=== PATIENT | female | born 1995 | race Caucasian/White ===

== ENCOUNTER 2018-04-18 19:46 | Emergency (ER) | payer BC ==
[2018-04-18] MEDS ORDERED: RINGERS SOLUTION,LACTATED 1,000 ML IV ONE (20:56)
[2018-04-18] MEDS ORDERED: TETRACAINE HCL 0.5% OPH SOLN 4 ML OD ONE (20:57)
--- NOTE | 2018-04-18 20:58 | ER Document Report ---
ED Medical Screen (RME) - General Chief Complaint: Eye Problem Stated Complaint: EYE INJURY Mode of Arrival: Ambulatory Information source: Patient Notes: Patient reports accidentally using nail belarusian remover to remove eye makeup. Patient complains of burning and irritation to right eye. Patient states that poison control advised to come here for further evaluation. Patient denies any use of contact lenses or glasses. I have greeted and performed a rapid initial assessment of this patient. A comprehensive ED assessment and evaluation of the patient, analysis of test results and completion of the medical decision making process will be conducted by additional ED providers. TRAVEL OUTSIDE OF THE [place] IN LAST 30 DAYS: No Physical Exam - Vital signs Vitals: Temp Pulse Resp BP Pulse Ox 98.6 F 94 18 119/82 98 04/18/18 19:52 04/18/18 19:52 04/18/18 19:52 04/18/18 19:52 04/18/18 19:52 - HEENT Eyes: Other - Sclera of right eye injected Visual acuity- Right eye: 20/15 Visual acuity- Left eye: 20/15 Visual acuity- Both eyes: 20/15 Corrective lenses worn: No Course - Vital Signs Vital signs: Temp Pulse Resp BP Pulse Ox 98.6 F 94 18 119/82 98 04/18/18 19:52 04/18/18 19:52 04/18/18 19:52 04/18/18 19:52 04/18/18 19:52 Doctor's Discharge - Discharge Referrals: KARLEE BUSTAMANTE MD [Primary Care Provider] - Follow up as needed
--- NOTE | 2018-04-18 22:59 | ER Document Report ---
ED Eye Complaint - General Chief Complaint: Eye Problem Stated Complaint: EYE INJURY Time Seen by Provider: 04/18/18 21:05 Mode of Arrival: Ambulatory Information source: Patient TRAVEL OUTSIDE OF THE [place] IN LAST 30 DAYS: No - HPI Notes: Patient is a otherwise healthy 23-year-old female states that she accidentally was using acetone to remove her eye makeup and may have gotten a small amount of acetone in her right eye. The patient reports no fever or chills but reports mild photophobia and eye pain. No difficulty breathing or oropharyngeal swelling. No nausea or vomiting. Last tetanus 2 years ago. Injury occurred at 1830 and she flushed her eye out immediately following and then flushed it second time prior to arrival. - Related Data Allergies/Adverse Reactions: No Known Allergies Allergy (Unverified 04/18/18 22:08) Past Medical History - General Information source: Patient - Social History Smoking Status: Unknown if Ever Smoked Frequency of alcohol use: None Drug Abuse: None Lives with: Alone Family History: Reviewed & Not Pertinent Patient has suicidal ideation: No Patient has homicidal ideation: No Renal/ Medical History: Denies: Hx Peritoneal Dialysis Review of Systems - Review of Systems -: Yes All other systems reviewed and negative Physical Exam - Vital signs Vitals: Temp Pulse Resp BP Pulse Ox 98.6 F 94 18 119/82 98 04/18/18 19:52 04/18/18 19:52 04/18/18 19:52 04/18/18 19:52 04/18/18 19:52 - HEENT Head: Normocephalic Eyes: Tears Conjunctiva: Injected Cornea: Flourescein stain uptake Extraocular movements intact: Yes Eyelashes: Normal Pupils: PERRL - New and then Visual acuity- Right eye: 20/15 Visual acuity- Left eye: 20/15 Visual acuity- Both eyes: 20/15 Corrective lenses worn: No Lids everted for exam: right: Normal - Mild cobblestoning and slight inflammation., Chalazion - None, Foreign body, Stye - None Anterior chamber: Normal Nerve palsy: No Visual plummer normal: Yes Notes: Minimal fluoroscein uptake R cornea stippling. Mild conj injection. Course - Re-evaluation Re-evalutation: 04/18/18 22:59 Patient had tetracaine eyedrops then 1 L of fluids was used to irrigate the eye with a Pepito lens. Exam was performed afterwards and patient had significant relief after the irrigation. There is no evidence for systemic allergic response or toxicity or respiratory toxicity. - Vital Signs Vital signs: Temp Pulse Resp BP Pulse Ox 98.6 F 94 18 119/82 98 04/18/18 19:52 04/18/18 19:52 04/18/18 19:52 04/18/18 19:52 04/18/18 19:52 Discharge - Discharge Clinical Impression: Burn of cornea and conjunctival sac, right eye, initial encounter Condition: Stable Disposition: HOME, SELF-CARE Instructions: Eyedrop Use ([facility]), Corneal Abrasion ([facility]) Additional Instructions: Avoid bright lights and sunlight if it causes you pain. Wear sunglasses and hat. Follow-up with local assistant elementary teacher or regional sales executive in case of any pain or irritation that persists longer than 48 hours. Use gentamicin ophthalmic drops 1 drop 4 times a day until pain is resolved +2 days. Take ibuprofen as needed for pain. Add in [place] for continued pain. Prescriptions: Hydrocodone/Acetaminophen [[place] 5-325 Tablet] 1 each PO Q4HP PRN #15 tablet PRN Reason: Referrals: KARLEE BUSTAMANTE MD [Primary Care Provider] - Follow up as needed
[2018-04-18 23:28] VITALS: BP 121/71
[2018-04-19] MEDS ORDERED: GENTAMICIN SULFATE 0.3% OPH SOLN (5 ML/ER DISP) OD SCH
== END 2018-04-18 23:29 | disposition home or self-care (01) ==
LOC: ER 19:46
DX: T26.11XA Burn of cornea and conjunctival sac, right eye, initial encounter (principal); X08.8XXA Exposure to other specified smoke, fire and flames, initial encounter
CPT/HCPCS: 99283; 96360; J3490 ×2; J7120

== ENCOUNTER → 2018-06-21 | Outpatient (CLI) | payer BC ==
[2018-06-21 09:29] LABS: ABSOLUTE LYMPHOCYTES (AUTO) 1.5 10^3/uL (0.5-4.7); ABSOLUTE MONOCYTES (AUTO) 0.3 10^3/uL (0.1-1.4); ABSOLUTE NEUT (AUTO) 5.5 10^3/uL (1.7-8.2); BASOPHILS % (AUTO) 0.3 % (0-2); EOSINOPHILS % (AUTO) 0.6 % (0-6); HEMATOCRIT 41.4 % (36.0-47.0); HEMOGLOBIN 14.7 g/dL (12.0-15.5); LYMPHOCYTES % (AUTO) 20.1 % (13-45); MEAN CORPUSCULAR HEMOGLOBIN 32.2 pg (27.0-33.4); MEAN CORPUSCULAR HGB CONC 35.4 g/dL (32.0-36.0); MEAN CORPUSCULAR VOLUME 91 fl (80-97); MONOCYTES % (AUTO) 4.8 % (3-13); PLATELET COUNT 294 10^3/uL (150-450); RED BLOOD COUNT 4.55 10^6/uL (3.72-5.28); RED CELL DISTRIBUTION WIDTH 11.5 % (11.5-14.0); SEGMENTED NEUTROPHILS % (AUTO) 74.2 % (42-78); TOTAL CELLS COUNTED % (AUTO) 100 %; WHITE BLOOD COUNT 7.3 10^3/uL (4.0-10.5)
[2018-06-21 09:42] LABS: ALANINE AMINOTRANSFERASE 18 U/L (9-52); ALBUMIN 4.4 g/dL (3.5-5.0); ALKALINE PHOSPHATASE 62 U/L (38-126); ANION GAP 6 (5-19); ASPARTATE AMINO TRANSFERASE 25 U/L (14-36); BILIRUBIN,DIRECT 0.2 mg/dL (0.0-0.4); BILIRUBIN,TOTAL 0.6 mg/dL (0.2-1.3); BLOOD UREA NITROGEN 13 mg/dL (7-20); CALCIUM 9.5 mg/dL (8.4-10.2); CARBON DIOXIDE 31 mmol/L (22-30); CHLORIDE 103 mmol/L (98-107); CHOLESTEROL 168.44 mg/dL (0-200); GLUCOSE 89 mg/dL (75-110); POTASSIUM 4.3 mmol/L (3.6-5.0); SODIUM 140.1 mmol/L (137-145); TRIGLYCERIDES 52 mg/dL (<150)
[2018-06-21 09:53] LABS: DIRECT LDL 92 mg/dL (<100)
== END ==
LOC: OD 07:06
PROVIDERS: ATTEND Family Medicine Geriatric Medicine
DX: R53.83 Other fatigue (principal); Z82.69 Family history of other diseases of the musculoskeletal system and connective tissue; Z11.3 Encounter for screening for infections with a predominantly sexual mode of transmission; J30.9 Allergic rhinitis, unspecified
CPT/HCPCS: 36415; 80053; 80061; 84443; 85025; 86038; 86235; 86430; 86592; 86701

== ENCOUNTER → 2018-08-16 | Outpatient (CLI) | payer BC ==
[2018-08-16 08:35] LABS: ABSOLUTE EOSINOPHILS # (AUTO) 0.1 10^3/uL (0.0-0.6); ABSOLUTE LYMPHOCYTES (AUTO) 1.6 10^3/uL (0.5-4.7); ABSOLUTE MONOCYTES (AUTO) 0.4 10^3/uL (0.1-1.4); ABSOLUTE NEUT (AUTO) 3.9 10^3/uL (1.7-8.2); BASOPHILS % (AUTO) 0.4 % (0-2); HEMATOCRIT 43.6 % (36.0-47.0); HEMOGLOBIN 15.3 g/dL (12.0-15.5); LYMPHOCYTES % (AUTO) 27.3 % (13-45); MEAN CORPUSCULAR HEMOGLOBIN 32.2 pg (27.0-33.4); MEAN CORPUSCULAR VOLUME 92 fl (80-97); PLATELET COUNT 251 10^3/uL (150-450); RED BLOOD COUNT 4.74 10^6/uL (3.72-5.28); RED CELL DISTRIBUTION WIDTH 12.5 % (11.5-14.0); SEGMENTED NEUTROPHILS % (AUTO) 65.3 % (42-78); TOTAL CELLS COUNTED % (AUTO) 100 %; WHITE BLOOD COUNT 5.9 10^3/uL (4.0-10.5)
[2018-08-16 09:09] LABS: ALANINE AMINOTRANSFERASE 25 U/L (9-52); ALBUMIN 4.4 g/dL (3.5-5.0); ALKALINE PHOSPHATASE 59 U/L (38-126); ASPARTATE AMINO TRANSFERASE 34 U/L (14-36); BILIRUBIN,TOTAL 0.5 mg/dL (0.2-1.3); TOTAL PROTEIN 7.5 g/dL (6.3-8.2); TRIGLYCERIDES 60 mg/dL (<150)
== END ==
LOC: DACC 07:25
PROVIDERS: ATTEND Physician Assistant Medical
DX: L70.0 Acne vulgaris (principal); B07.0 Plantar wart; L53.8 Other specified erythematous conditions; L29.8 Other pruritus; L85.3 Xerosis cutis
CPT/HCPCS: 36415; 80076; 84478; 85025

== ENCOUNTER → 2018-09-20 | Outpatient (CLI) | payer BC ==
[2018-09-20 08:36] LABS: ABSOLUTE EOSINOPHILS # (AUTO) 0.1 10^3/uL (0.0-0.6); ABSOLUTE LYMPHOCYTES (AUTO) 1.5 10^3/uL (0.5-4.7); ABSOLUTE MONOCYTES (AUTO) 0.3 10^3/uL (0.1-1.4); ABSOLUTE NEUT (AUTO) 2.2 10^3/uL (1.7-8.2); BASOPHILS % (AUTO) 0.5 % (0-2); EOSINOPHILS % (AUTO) 1.7 % (0-6); HEMATOCRIT 41.6 % (36.0-47.0); HEMOGLOBIN 14.3 g/dL (12.0-15.5); LYMPHOCYTES % (AUTO) 36.5 % (13-45); MEAN CORPUSCULAR HEMOGLOBIN 31.4 pg (27.0-33.4); MEAN CORPUSCULAR HGB CONC 34.2 g/dL (32.0-36.0); MEAN CORPUSCULAR VOLUME 92 fl (80-97); PLATELET COUNT 236 10^3/uL (150-450); RED BLOOD COUNT 4.54 10^6/uL (3.72-5.28); SEGMENTED NEUTROPHILS % (AUTO) 53.3 % (42-78); TOTAL CELLS COUNTED % (AUTO) 100 %; WHITE BLOOD COUNT 4.2 10^3/uL (4.0-10.5)
[2018-09-20 09:04] LABS: ALANINE AMINOTRANSFERASE 20 U/L (9-52); ALBUMIN 4.1 g/dL (3.5-5.0); ALKALINE PHOSPHATASE 44 U/L (38-126); ASPARTATE AMINO TRANSFERASE 28 U/L (14-36); BILIRUBIN,DIRECT 0.3 mg/dL (0.0-0.4); BILIRUBIN,TOTAL 0.7 mg/dL (0.2-1.3); TOTAL PROTEIN 6.7 g/dL (6.3-8.2); TRIGLYCERIDES 66 mg/dL (<150)
== END ==
LOC: OD 07:10
PROVIDERS: ATTEND Physician Assistant
DX: L70.0 Acne vulgaris (principal); L85.3 Xerosis cutis
CPT/HCPCS: 36415; 80076; 84478; 85025

== ENCOUNTER → 2018-10-25 | Outpatient (CLI) | payer BC ==
[2018-10-25 08:09] LABS: ABSOLUTE EOSINOPHILS # (AUTO) 0.1 10^3/uL (0.0-0.6); ABSOLUTE LYMPHOCYTES (AUTO) 1.8 10^3/uL (0.5-4.7); ABSOLUTE MONOCYTES (AUTO) 0.4 10^3/uL (0.1-1.4); ABSOLUTE NEUT (AUTO) 2.7 10^3/uL (1.7-8.2); BASOPHILS % (AUTO) 0.4 % (0-2); EOSINOPHILS % (AUTO) 1.6 % (0-6); HEMATOCRIT 41.9 % (36.0-47.0); HEMOGLOBIN 14.3 g/dL (12.0-15.5); LYMPHOCYTES % (AUTO) 35.2 % (13-45); MEAN CORPUSCULAR HEMOGLOBIN 31.4 pg (27.0-33.4); MEAN CORPUSCULAR VOLUME 92 fl (80-97); MONOCYTES % (AUTO) 8.7 % (3-13); PLATELET COUNT 250 10^3/uL (150-450); RED BLOOD COUNT 4.54 10^6/uL (3.72-5.28); RED CELL DISTRIBUTION WIDTH 12.3 % (11.5-14.0); SEGMENTED NEUTROPHILS % (AUTO) 54.1 % (42-78); TOTAL CELLS COUNTED % (AUTO) 100 %
[2018-10-25 08:25] LABS: ALANINE AMINOTRANSFERASE 16 U/L (9-52); ALBUMIN 4.2 g/dL (3.5-5.0); ALKALINE PHOSPHATASE 52 U/L (38-126); ASPARTATE AMINO TRANSFERASE 29 U/L (14-36); BILIRUBIN,DIRECT 0.3 mg/dL (0.0-0.4); BILIRUBIN,TOTAL 0.5 mg/dL (0.2-1.3); CHOLESTEROL 156.68 mg/dL (0-200); TRIGLYCERIDES 82 mg/dL (<150)
[2018-10-25 08:37] LABS: DIRECT LDL 83 mg/dL (<100)
== END ==
LOC: DACC 07:04
PROVIDERS: ATTEND Physician Assistant
DX: L85.3 Xerosis cutis (principal); L70.0 Acne vulgaris; L53.8 Other specified erythematous conditions; L29.8 Other pruritus; B07.8 Other viral warts; Z79.899 Other long term (current) drug therapy
CPT/HCPCS: 36415; 80061; 80076; 85025